=== PATIENT | male | born 1970 | race Caucasian/White ===

== ENCOUNTER → 2017-04-17 | Outpatient (CLI) | payer OTHER | LOC: FIMAGING 12:08 | PROVIDERS: ATTEND Orthopaedic Surgery | DX: Z01.818 Encounter for other preprocedural examination (principal); M17.12 Unilateral primary osteoarthritis, left knee ==

== ENCOUNTER 2017-04-25 07:20 | Observation (INO) | payer OTHER ==
[~2017-04-25 07:20] MED LIST: ROPIVACAINE 0.2% 80 MG, EPINEPHrine 0.2 MG, KETOROLAC TROMETHAMINE 30 MG in SYRINGE 0 ML IU ONE; TRANEXAMIC ACID 3,000 MG in NS 50 ML IRR ONE
[2017-04-25] MEDS ORDERED: DEXAMETHASONE 4 MG/ML VIAL IVP ONE (07:48)
[2017-04-25] MEDS ORDERED: FAMOTIDINE 20 MG TAB PO ONE (07:48)
[2017-04-25] MEDS ORDERED: ceFAZolin 2 GM/SWFI 2 GM/20 ML SYR IVP ONE (07:48)
[2017-04-25] MEDS ORDERED: ACETAMINOPHEN 325 MG TAB PO ONE (07:48)
[2017-04-25] MEDS ORDERED: LR 1,000 ML IV ONE (07:50)
[2017-04-25] MEDS ORDERED: LIDOCAINE 1% 2 ML INJ ID PRN (07:50)
[2017-04-25] MEDS ORDERED: TRANEXAMIC ACID 3,000 MG/50 ML BAG IRR ONE (07:54)
[2017-04-25] MEDS ORDERED: VANCOMYCIN 1 GM VIAL ONE (07:54)
--- NOTE | 2017-04-25 08:06 | PDHPUP ---
History & Physical Update H&P update statement: This history and physical update is based on an assessment of the patient which was completed after admission or registration (within 24 hours), but prior to the surgery/procedure. H&P update: H&P reviewed & patient examined, no change in patient's condition since H&P completed
--- NOTE | 2017-04-25 08:09 | PDGENHP ---
History and Physical History and Physical: Chief Complaint CBB_discuss knee surgery here to discuss left knee Patient's Pharmacies [id number] (ERX): [address], [facility] [id number], Ph , Vitals Ht: 6 ft 04/17/2017 02:07 pm BP: 112/87 sitting 04/17/2017 02:16 pm Pulse: 92 bpm regular 04/17/2017 02:16 pm Allergies Reviewed Allergies NKDA Medications Reviewed Medications ALPRAZolam 1 mg tablet TK 1 T PO TID 09/16/16 filled surescripts BD Luer-Mallory Syringe 3 mL 18 x 1 1/2" USE DIRECTED 10/08/16 filled surescripts BD SYR 23G 1" NEEDLE ONLY [place] USE DIRECTED 10/08/16 filled surescripts celecoxib 200 mg capsule take 2 the night before surgery then one tab once a day for 3 weeks after surgery 04/17/17 prescribed Marj Johnston PA-C chlordiazePOXIDE 25 mg capsule TK 2 CS PO TID. HOLD DOSE IF LETHARGIC 12/09/16 filled surescripts escitalopram 10 mg tablet TK 1 T PO ONCE D 06/28/16 filled surescripts HCG-CHORIONIC GN 5000U INJ Eaches MIX EACH HCG WITH 2.5ML OF BACT. WATER & INJECT 0.5ML (50 ON INSULIN SYRINGE) SUBCUTANEOUSLY TWICE WEEKLY 10/08/16 filled surescripts insulin syringe-needle U-100 1 mL 31 gauge x /16" USE DIRECTED 10/08/16 filled surescripts naltrexone 50 mg tablet TK 1 T PO ONCE D 11/21/16 filled surescripts nortriptyline 25 mg capsule 09/16/16 filled surescripts nortriptyline 50 mg capsule 12/09/16 filled surescripts oxyCODONE 5 mg tablet Take 1-2 tablets every 3 hours as needed for pain 04/17/17 prescribed Marj Johnston PA-C TESTOSTERONE ASHTYN/CYP [id number] INJ [place] INJECT 0.8ML INTRAMUSCULARLY ONCE A WEEK 10/08/16 filled surescripts Vaccines None recorded. Problems Reviewed Problems No known problems Family History Reviewed Family History Social History Reviewed Social History Smoking Status: Never smoker Occupation: entrepreur Employer: self Chewing tobacco: 2-4/day Alcohol intake: Occasional Alcohol-years of use: 20 Illicit drugs: none Exercise level: Heavy Sporting activities: all outdoor Hand Dominance: Right Education: 4 Year College Live alone or with others?: alone How many days in the past year have you had a heavy drinking consumption (4+ female, 5+ male)?: 0 Surgical History Reviewed Surgical History Past Medical History Reviewed Past Medical History GERD/Reflux: Y Screening None recorded. HPI [place] knee HPI Reported by patient. Location of symptoms: Left knee Symptoms: Pain; medial Severity: severe Duration: 8+ years Onset: chronic Exacerbated by: Walking; Physical activity; performs with symptoms Alleviated by: activity modifications; NSAIDs; PT/OT; cortisone injection; viscosupplement injection; also stem cells Associated Symptoms: no numbness; swelling Previous Surgery: none Prior studies: radiographs Previous Injections: did not help Previous PT: did not help Work Related: no Notes: patient had many questions regarding surgery. All were addressed today. ROS ROS as noted in the HPI Physical Exam Patient is a 47-year-old male. Constitutional: General Appearance: healthy-appearing, NAD, and normal body habitus. Gait and Station: Appearance: ambulates with no assitive devices and antalgic gait. Cardiovascular System: Arterial Pulses Left: dorsalis pedis normal and posterior tibialis normal. Edema Left: no edema. Varicosities Left: no varicosities and capillary refill test normal. Lymph Nodes: Inspection/Palpation Left: no popliteal LAD. Knees: Inspection Left: no induration, warmth, or erythema; swelling and genu varum deformity; and normal axial alignment. Bony Palpation Left: no tenderness of the lateral wall trochlear groove, the medial wall trochlear groove, the medial femoral condyle, the adductor tubercle, or the lateral joint line and tenderness of the medial joint line. Soft Tissue Palpation Left: no tenderness of the lateral patellar retinaculum, the medial patellar retinaculum, the prepatellar bursa, the patellar tendon, the fat pad, the medial collateral ligament, the pes anserinus, the saphenous nerve, the iliotibial tract, the lateral collateral ligament, the popliteal fossa, the biceps femoris tendon, or the gastrocnemius. Active Range of Motion Left: no crepitus or pain with motion and normal, flexion normal, and extension normal. Stability Left: no laxity, subluxation, or ligamentous instability and anterior drawer sign negative and posterior drawer sign negative. Strength Left: no hamstring weakness or quadriceps weakness and flexion 5/5 and extension 5/5. Skin: Left Lower Extremity: normal. Neurologic: Ankle Reflex Left: normal (2). Knee Reflex Left: normal (2). Sensation on the Left: T12 normal, L1 normal, L2 normal, L3 normal, L4 normal, L5 normal, and S1 normal. Assessment / Plan Left knee OA Previous xrays were reviewed today reveal severe DJD Discussed operative and non-operative interventions for diagnosis of knee arthritis with patient. Recommend Left medial MPL for treatment. Discussed risks and benefits of operative intervention including but not limited to bleeding, infection, need for further surgery, blood clots, blood clots going to the lungs and rare perioperative complications including stroke, heart attack and . Patient understands risks and wishes to proceed. Informed consent was obtained today Postoperative medications were written today including ASA for VTE prophylaxis postop Left medial MPLscheduled four years ago detached quad muscle mid thigh not interested in outpatient 1. Localized, primary osteoarthritis M17.10: Unilateral primary osteoarthritis, unspecified knee oxycodone 5 mg tablet - Take 1-2 tablets every 3 hours as needed for pain Qty: 112 tablet(s) Refills: 0 Pharmacy: N/A celecoxib 200 mg capsule - take 2 the night before surgery then one tab once a day for 3 weeks after surgery Qty: 23 capsule(s) Refills: 0 Pharmacy : [id number] Return to Office Hernán Johnston M.D. for Surgery [facility] at Surgery on 04/25/2017 at 09:15 AM Marj Johnston PA-C for Surgery [facility] at Surgery on 04/25/2017 at 09:15 AM Marj Johnston PA-C for Post Op Visit at MAIN OFFICE on 05/15/2017 at 11:45 AM
[2017-04-25] MEDS ORDERED: MIDAZOLAM 2 MG/2 ML VIAL IVP ONE (08:43)
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
[2017-04-25] MEDS ORDERED: PROPOFOL/EMULSION 500 MG/50 ML BOTTLE IV ONE (09:08)
[2017-04-25] MEDS ORDERED: CYCLOBENZAPRINE 10 MG TAB PO PRN (09:49)
[2017-04-25] MEDS ORDERED: PROMETHAZINE HCL 25 MG/ML INJ IVP PRN (09:49)
[2017-04-25] MEDS ORDERED: METOCLOPRAMIDE 10 MG/2 ML VIAL IVP PRN (09:49)
[2017-04-25] MEDS ORDERED: MAGNESIUM HYDROXIDE 30 ML UDCUP PO PRN (09:49)
[2017-04-25] MEDS ORDERED: PROMETHAZINE HCL 25 MG SUPPR PR PRN (09:49)
[2017-04-25] MEDS ORDERED: diphenhydrAMINE 25 MG CAP PO PRN (09:49)
[2017-04-25] MEDS ORDERED: TEMAZEPAM 15 MG CAP PO PRN (09:49)
[2017-04-25] MEDS ORDERED: ONDANSETRON 4 MG/2 ML VIAL IVP PRN ×2 (09:49→13:23)
[2017-04-25] MEDS ORDERED: DIPHENOXYLATE/ATROPINE LOMOTIL 1 TAB PO PRN (09:49)
[2017-04-25] MEDS ORDERED: BISACODYL 10 MG SUPP PR PRN (09:49)
[2017-04-25] MEDS ORDERED: ONDANSETRON DISINTEGRATING 4 MG TAB PO PRN (09:49)
[2017-04-25] MEDS ORDERED: LACTULOSE 20 GM/30 ML UDCUP PO PRN (09:49)
[2017-04-25] MEDS ORDERED: POLYETHYLENE GLYCOL 3350 17 GM PKT PO PRN (09:49)
[2017-04-25] MEDS ORDERED: TETRAHYDROZOLINE 0.05% OP PRN (09:51)
[2017-04-25] MEDS ORDERED: ROPIVACAINE HCL 150 MG/30 ML INJ ONE (09:53)
[2017-04-25] MEDS ORDERED: clonIDINE 1 MG/10 ML VIAL EP ONE (09:53)
[2017-04-25] MEDS ORDERED: LR 1,000 ML IV SCH (10:00)
[2017-04-25] MEDS ORDERED: PROPOFOL 200 MG/20 ML VIAL ONE (10:36)
--- NOTE | 2017-04-25 10:53 | POSTOPPROG ---
Post Op Note Date of Operation: 04/25/17 Surgeon: Taylor Choi Regional Training Manager: wendy choi Anesthesiologist: dr. olmstead Anesthesia: Spinal, Other (Specify) (adductor canal block) Pre-op Diagnosis: left knee OA Post-op Diagnosis: same Indication: left knee pain due to OA that failed conservative measures Procedure: L med MPL Findings: severe medial knee OA Inf/Abcess present in the surg proc area at time of surgery?: No EBL: 50-100
[2017-04-25] MEDS ORDERED: fentaNYL 100 MCG/2 ML INJ IVP PRN (13:23)
[2017-04-25] MEDS ORDERED: ACETAMINOPHEN 500 MG TAB PO PRN (13:23)
[2017-04-25] MEDS ORDERED: OXYCODONE/APAP 5/325 TAB PO PRN (13:23)
[2017-04-25] MEDS ORDERED: HYDROCODONE/APAP 5/325 TAB PO PRN (13:23)
[2017-04-25] MEDS ORDERED: NALOXONE HCL 0.4 MG/ML INJ IVP PRN (13:23)
--- NOTE | 2017-04-25 13:25 | POSTANESTH ---
Post Anesthetic Evaluation Cardiovascular Status: Normal, Stable, Similar to Pre-Op Cond Respiratory Status: Normal, Stable, Similar to Pre-op Cond. Level of Consciousness/Mental Status: Can Participate in Eval, Alert and Oriented Pain Control: Adequate, Prn Tx Ordered Nausea/Vomiting Control: Adequate, Prn Tx Ordered Complications Possibly Related to Anesthesia: None Noted
[2017-04-25] MEDS ORDERED: ceFAZolin 2 GM/DEXTROSE 100 ML IV SCH (14:00)
[2017-04-25] MEDS ORDERED: TETRAHYDROZOLINE 0.05% 15 ML OPHT.BTL EACHEYE PRN (15:43)
[2017-04-25] MEDS: ACETAMINOPHEN 325 MG TAB PO SCH ×3 (15:50→20:52)
[2017-04-25] MEDS: ceFAZolin 2 GM/SWFI 2 GM/20 ML SYR IVP SCH (15:58)
[2017-04-25] MEDS: oxyCODONE IR 5 MG TAB PO PRN ×2 (18:26→21:32)
[2017-04-25] MEDS: SENNOSIDES/DOCUSATE SODIUM TAB PO SCH (20:51)
[2017-04-25] MEDS: ASPIRIN 81 MG CHEWABLE TAB PO SCH (20:51)
[2017-04-25] MEDS: FAMOTIDINE 20 MG TAB PO SCH (20:52)
[2017-04-26] MEDS: ceFAZolin 2 GM/SWFI 2 GM/20 ML SYR IVP SCH
[2017-04-26] MEDS: oxyCODONE IR 5 MG TAB PO PRN ×2 (00:20→04:59)
[2017-04-26] MEDS: ACETAMINOPHEN 325 MG TAB PO SCH ×2 (04:58→09:00)
[2017-04-26 08:24] VITALS: BP 123/86; PULSE 74; RESP 16; TEMP 97.7
[2017-04-26] MEDS: ASPIRIN 81 MG CHEWABLE TAB PO SCH (09:00)
[2017-04-26] MEDS ORDERED: NON-FORMULARY NEW DRUG (Esomeprazole Mag Trihydrate [Nexium] 40 MG) PO SCH (09:00)
[2017-04-26] MEDS ORDERED: PANTOPRAZOLE SODIUM 40 MG TAB PO SCH (09:00)
[2017-04-26] MEDS: FAMOTIDINE 20 MG TAB PO SCH (09:07)
[2017-04-26] MEDS: SENNOSIDES/DOCUSATE SODIUM TAB PO SCH (09:08)
[2017-04-26 09:11] VITALS: O2SAT 95
--- NOTE | 2017-04-26 09:53 | SOAPPROG ---
SOAP Progress Note Assessment/Plan: Assessment: prosper is doing well POD 1 s/p left medial partial knee arthroplasty pain is well controlled, encouraged patient to take oral narcotic pain med prior to d/c. adductor canal block are working well. educated patient that pain will worsen this evening as nerve blocks wear off. DVT ppx: recommend aspirin 81 mg BID for 4 weeks d/c planning: d/c to home today postop urinary retention: straight cath'd yesterday, resolved today. Plan: 04/26/17 09:52 Subjective: prosper is resting comfortably eager for d/c denies SOB, chest pain and N/v Objective: Vital Signs Temp Pulse Resp BP Pulse Ox 36.5 C 74 16 123/86 H 95 04/26/17 08:00 04/26/17 08:00 04/26/17 08:00 04/26/17 08:00 04/26/17 09:10 Laboratory Results 04/26/17 04:58 04/25/17 04/26/17 04/27/17 05:59 05:59 05:59 Intake Total 6100 Output Total 4300 Balance 1800 LLE: incision dressing is clean and dry, NVI, +pf/df ICD10 Worksheet Patient Problems: Problems Problem Status Onset Primary localized osteoarthritis of left knee Acute
--- NOTE | 2017-04-26 10:39 | GDS ---
[f rep st] DISCHARGE SUMMARY ADMIT DIAGNOSIS: Left knee osteoarthritis. DISCHARGE DIAGNOSIS: Left knee osteoarthritis. PROCEDURE: Left partial knee arthroplasty, medial compartment, robot assisted. VTE PROPHYLAXIS: Recommend baby aspirin 81 mg twice daily for 4 weeks. BRIEF DESCRIPTION OF HOSPITAL STAY: Patient was admitted for an elective joint arthroplasty. The pa montse tolerated the procedure well and has passed physical therapy. The patient was given appropriat e antibiotic prophylaxis and venous thromboembolism prophylaxis. The patient's pain was well control led on oral pain medication, patient was holding down food, and had urinated. Decision was made to d ischarge the patient. The patient was given post-operative prescriptions pre-operatively. PLAN: Follow up as scheduled in Dr. Johnston's office 05/15 at 11:45 a.m. /[id number]/MODL
--- NOTE | 2017-04-26 12:05 | ASDISCHSUM ---
Discharge Information Plan Status:Home with No Needs Medically Cleared to Leave: Discharge Date:04/26/2017 11:35 AM CM D/C Disposition:Home, Routine, Self-Care ADT D/C Disposition:Home, Routine, Self-Care Projected Discharge Date:04/26/2017 11:35 AM Transportation at D/C: Discharge Delay Reason: Follow-Up Date:04/26/2017 11:35 AM Discharge Slot: Final Diagnosis: Placement Information Patient Contact Information Contact Name:CANDACE Relationship:Sister Address:[address] Work Phone: City:[place] Alternate Phone: [facility]/Zip Code:[place] [address] Email: Financial Information Financial Class:HMO and PPO Plans Primary Plan Desc:[employer] Primary Plan Number:[id number] Secondary Plan Desc: Secondary Plan Number: Assessment Information Intervention Information Intervention Type:*Incorrect Registration Date of Service:04/25/2017 10:30 AM Patient Type:Inpatient Staff Member:RICARDO Tinoco, Alyssa Hours: Discipline: Severity: Comment:
--- NOTE | 2017-04-29 08:27 | GOP ---
[f rep st] OPERATIVE REPORT DATE OF OPERATION: 04/25/2017 SURGEON: Cirilo Johnston MD RIB BENDER: REGINE Guardado. ANESTHESIA: Spinal. PREOPERATIVE DIAGNOSIS: Left knee osteoarthritis. POSTOPERATIVE DIAGNOSIS: Left knee osteoarthritis. PROCEDURE PERFORMED: Left medial compartment partial knee replacement with computer navigation, robotic assist. FINDINGS/PATHOLOGY: Severe medial compartment osteoarthritis. INDICATIONS: This is a 47-year-old male with progressive pain of the left knee unresponsive to conservative care. Risks and benefits of surgical intervention were explained in detail. DESCRIPTION OF PROCEDURE: The patient was brought to the operating room and placed on the table in supine position. Spinal anesthesia was induced without difficulty. A pneumatic tourniquet was applied about the left proximal thigh and the leg was prepped and draped in sterile fashion. Attention was turned first to the distal aspect of the left femur. At 3 cm proximal to the lateral rise of the femur, 2 percutaneous half pins were placed for fixation of the femoral array. In a similar fashion, 2 pins were placed anterolateral on the tibia for fixation of the tibial array. External land marking and registration of the hip center were performed without difficulty. After exsanguination by elevation, the tourniquet was inflated to 250 mmHg. Incision was made from the tibial tuberosity to the superior pole of the patella. Dissection was carried out through the subcutaneous tissue to the deep fascia using Bovie electrocautery for hemostasis. Medial parapatellar arthrotomy was carried out to the superior pole of the patella. The medial collateral ligament was elevated and the infrapatellar fat pad was resected. Internal femoral and tibial registration were carried out without difficulty and the femoral and tibial checkpoints were placed and verified for accuracy. Attention was turned to the femur. The foot print for the size 5 femoral component was cut with the 6 mm bur using the [employer] robotic system and verified for accuracy against the CT based plan. The hole was cut for the femoral post. In a similar fashion, the 6 mm bur was used to cut the foot print for the size 5 tibial component using the [employer] system and verified for accuracy against the CT based plan. Attention was turned to the posterior aspect of the knee and remnants of the medial meniscus were excised. The posterior capsule was injected with ropivacaine, epinephrine and Toradol. Trial reduction was carried out and there was excellent range of motion, alignment and stability using the size 5 femoral component and the size 5 tibial component, 5 x 8 mm polyethylene. All trials were then removed. The joint was thoroughly irrigated and carefully dried. One package of cement and 1 gram of vancomycin were mixed in the vacuum mixer and placed on the fixation surfaces of all components. The components were implanted and all excess cement was thoroughly removed. Implant placement was verified against the CT view plan and found to be excellent. The tourniquet was deflated and all bleeders were coagulated. The wound was thoroughly irrigated and closed using interrupted sutures of 2-0 Vicryl for the joint capsule. The subcu was closed with 3-0 Vicryl and the skin with 4-0 Monocryl. Dermabond and Steri-Strips were applied, followed by a compressive dressing. The patient was then moved from the operating room to the recovery room in good condition, having tolerated the procedure well. CASE CLASSIFICATION: Clean. /[id number]/MODL MTDD
== END 2017-04-26 11:35 | disposition home or self-care (01) ==
LOC: INTOOBSV 07:20 → F3N 07:20
PROVIDERS: ADMIT Orthopaedic Surgery; ATTEND Orthopaedic Surgery
PROC: 0SRD0J9 Replacement of Left Knee Joint with Synthetic Substitute, Cemented, Open Approach (ICD-10-PCS; principal; 2017-04-25 09:15)
PROC: 8E0YXBZ Computer Assisted Procedure of Lower Extremity (ICD-10-PCS; principal; 2017-04-25 09:15)
DX: M17.12 Unilateral primary osteoarthritis, left knee (principal); M25.562 Pain in left knee; Z87.891 Personal history of nicotine dependence
CPT/HCPCS: 20985; 27446; 73560; 97116; 97161; G0378; C1713; J0171; J0690; J0735; J1100; J1885; J2250; J2704; J2795; J3370